=== PATIENT | male | born 1975 | race Two or more races ===

== ENCOUNTER 2025-04-09 06:25 | Day surgery (SDC) | payer MEDICAID, SELFPAY ==
[2025-04-04 10:54] VITALS: BMI 43.4
[2025-04-09] VITALS (9 sets, daily range): BP systolic 97–123; BP diastolic 70–93; PULSE 44–59; RESP 17–21; TEMP 36.1–36.9; O2SAT 95–100
[2025-04-09] MEDS: SODIUM CHLORIDE 0.9% 500 ML 500 ML 100 ML IV (07:38)
[2025-04-09] MEDS: fentaNYL CIT INJ 50 mCg/ML AMP 2ML (ASD USE ONLY) IVP (07:38)
[2025-04-09] MEDS: MIDAZOLAM INJ 1 MG/ML VIAL 2 ML (ASD USE ONLY) 2 MG IVP (07:43)
== END 2025-04-09 08:35 | disposition home or self-care (01) ==
PROVIDERS: PCP Family Medicine; Referring Provider Surgery; Visit Provider Surgery
PROC: 0DBE8ZX Excision of Large Intestine, Via Natural or Artificial Opening Endoscopic, Diagnostic (ICD-10-PCS; CPT 45380; principal; 2025-04-09 07:30)
DX: Z12.11 Encounter for screening for malignant neoplasm of colon (principal); K64.1 Second degree hemorrhoids; K57.30 Diverticulosis of large intestine without perforation or abscess without bleeding
CPT/HCPCS: 45378; A4649; J1200; J2250; J3010; J7999